=== PATIENT | male | born 1990 | race Caucasian/White ===

== ENCOUNTER 2024-01-27 19:35 | Emergency (ER) | payer BC, OTHER, SELFPAY ==
[2024-01-27 19:38] VITALS: BP 127/94
[2024-01-27 20:00] VITALS: BP 120/88
--- NOTE | 2024-01-27 20:25 | ED.GENMED ---
History of Present Illness
General
Chief Complaint: Abdominal Pain
Time Seen by Provider: 01/27/24 19:53
History of Present Illness
History of Present Illness:
34-year-old male with history of kidney stones presenting to the emergency department for left-sided abdominal pain. Patient reports symptoms started prior to arrival. Pain has since been intermittent. Denies any present pain. It resolved since
arrival to the hospital, did not take any medications for pain. Notes that he has had kidney stones in the past, however on the right side, however pain did not feel similar to kidney stone. Denies any abdominal surgeries in the past. Reports
nausea without vomiting. Denies changes in stool. Denies chest pain or difficulty breathing. Denies fever. Reports some hesitancy with urination, otherwise denies acute medical complaints
Phy Exam
Physical Exam
Physical Exam:
General: Well-appearing, no clinical signs of dehydration, nontoxic and in no acute distress
HEENT: protecting airway
Neck: appears supple
CV: Normal heart rate, regular rhythm
Resp: No accessory muscle use, no increased work of breathing, lungs clear to auscultation bilaterally
Abd: Soft and non-distended, no tenderness to palpation, no CVA tenderness
Extremities: No deformities, no swelling, no erythema
Neuro: alert, no focal neurologic deficit
: deferred
Rectal: deferred
Psych: Normal affect
Skin: Intact
Course
Orders/Labs/Results
Orders:
Orders
01/27/24 20:26
Complete Blood Count/With Diff Urgent
Comprehensive Metabolic Panel Urgent
Lipase Urgent
01/27/24 23:02
Urinalysis Reflex To Culture Urgent
Date Specimen was Collected: 01/27/24
Time Specimen was Collected: 22:58
Urine Microscopic Reflex Cult Urgent
01/27/24 23:09
CT Abd/pel Without Iv Or Oral Urgent
Comment:
Reason For Exam: L-sided pain, hx stones
Abnormal Lab Results
01/27/24 01/27/24
20:26 23:02
WBC 11.3 H 10^3/uL
(4.8-10.8)
RBC 4.29 L 10^6/uL
(4.70-6.10)
Hct 38.7 L %
(39.0-52.0)
MCH 33.3 H pg
(27.0-31.0)
Absolute Neuts (auto) 7.6 H 10^3/uL
(1.4-6.5)
Absolute Monos (auto) 0.8 H 10^3/uL
(0.1-0.6)
Glucose 106 H mg/dl
(70-99)
Ur Occult Blood Reflex 3+ A
(Negative)
Urine RBC 7-10 A /HPF
(0-2)
Urine Bacteria (Reflex) Few A
(Negative)
01/27/24 20:26
01/27/24 20:26
Vital Signs
Initial and Last Documented VS:
Initial Vital Signs
Temp Pulse Resp BP Pulse Ox
98.6 F 89 20 127/94 96
01/27/24 19:38 01/27/24 19:38 01/27/24 19:38 01/27/24 19:38 01/27/24 19:38
Last Documented Vital Signs
Temp Pulse Resp BP Pulse Ox
98.6 F 66 22 124/91 98
01/27/24 19:38 01/27/24 22:00 01/27/24 22:00 01/27/24 22:00 01/27/24 22:00
MDM/Problems Addressed
MDM/Problems Addressed:
34-year-old male with history of kidney stones presenting for left-sided abdominal pain, since resolved. Vital signs are normal.
Patient well-appearing, no acute distress or discomfort. He is currently asymptomatic. No reproducible tenderness. Patient afebrile, nontoxic. In the absence of present symptoms and unremarkable exam, low suspicion for any serious
intra-abdominal process or infection. Symptoms could be consistent with renal colic versus passing kidney stone, known prior history of kidney stones. Will screen with laboratory analysis and urinalysis and continue to closely monitor.
23:10 -labs relatively unremarkable, however urine does show evidence of blood. On reassessment however, patient remains asymptomatic, reports that he has been urinating a lot. Suspect that he has already passed the kidney stone, pain-free.
Patient would like to forego any imaging and would like to be discharged. Feel that this is reasonable. Advised continued supportive therapy with Tylenol or Motrin as needed for pain and continued oral hydration. Return precautions discussed and
patient verbalized understanding.
*Critical Care Note
Total Time (30-74mins, 75-104mins- exclusive of procedures): Not Applicable
ED Attending Note
-
Portions of this chart may have been created with voice recognition software.� Occasional wrong word or��sound alike� substitutions may have occurred due to the inherent limitations of voice recognition software.
Discharge Plan
Departure
Patient Disposition: Home (Routine Discharge)
Date of Disposition: 01/27/24
Time of Disposition: 23:21
Patient with high blood pressure during this ER visit?: No
Condition: Good
Discharge Problem:
Acute left flank pain, Hematuria
Instructions: Kidney Stones (DC)
Referrals:
NONE,* [Family Provider] -
Jan Rahman Jr., MD [Active] - (kidney stone)
Activity Restrictions/Additional Instructions:
You were seen in the emergency department for flank pain
You are suspected to have a kidney
Please follow-up closely with your primary care physician and the urologist.
Return to the emergency department for any worsening of your symptoms, or any development of chest pain, difficulty breathing, abdominal pain with persistent vomiting and inability to tolerate food or liquid by mouth (concern for dehydration),
weakness, headache or confusion, fever greater than 100.4, or any additional symptoms that are concerning to you.
Thank you for choosing [facility].
Interventions
Interventions:
*Risk Screen - Suicide Last Done: 01/27/24 21:18
*General Assessment Last Done: 01/27/24 21:18
*Neglect/Abuse Screening Last Done: 01/27/24 21:18
ED- Fall Risk Assessment Last Done: 01/27/24 21:18
[place]-Odrlvl-Sgcjbhqtfu Assessment Last Done: 01/27/24 21:18
Discharge Date and Time
Print Language: MALAY
[2024-01-27 20:35] LABS: % Basophils 0.5 % (0-2); % Eosinophils 0.3 % (0-6); % Immature Granulocytes 0.3 % (0-0.5); % Lymphocytes 24.2 % (20.5-51.1); % Monocytes 7.3 % (1.7-9.3); % Neutrophils 67.4 % (42.2-75.2); Absolute Basophils 0.1 10^3/uL (0-0.2); Absolute Lymphocytes 2.7 10^3/uL (1.2-3.4); Absolute Monocytes 0.8 10^3/uL (0.1-0.6); Absolute Neutrophils 7.6 10^3/uL (1.4-6.5); Hematocrit 38.7 % (39.0-52.0); Hemoglobin 14.3 g/dL (13.0-18.0); Mean Corpuscular Hgb 33.3 pg (27.0-31.0); Mean Corpuscular Volume 90.2 fL (80.0-94.0); Mean Platelet Volume 9.7 fL (7.4-10.4); Nucleated Red Blood Cells % 0 % (-); Platelet Count 245 10^3/uL (130-400); Red Blood Cell Count 4.29 10^6/uL (4.70-6.10); Red Cell Dist. Width 11.9 % (11.5-14.5); White Blood Cell Count 11.3 10^3/uL (4.8-10.8)
[2024-01-27 21:14] LABS: ALT (SGPT) 26 U/L (0-50); AST (SGOT) 24 U/L (17-59); Albumin 4.5 g/dl (3.5-5.0); Alkaline Phosphatase 57 U/L (38-126); Blood Urea Nitrogen 18 mg/dl (9-20); Calcium 9.5 mg/dl (8.4-10.2); Carbon Dioxide 25 mmol/L (22-30); Chloride 104 mmol/L (98-107); Glucose 106 mg/dl (70-99); Lipase 159 U/L (23-300); Sodium 135 mmol/L (135-145); Total Bilirubin 0.4 mg/dl (0.2-1.3); Total Protein 6.9 g/dl (6.3-8.2); eGFR > 60.00
[2024-01-27 22:00] VITALS: BP 124/91
[2024-01-27 23:06] LABS: Urine Albumin Negative (Neg - Trace); Urine Bilirubin Negative (Negative); Urine Character Clear (Clear); Urine Color Yellow; Urine Glucose Negative (Negative); Urine Ketone Negative (Negative); Urine Leukocyte Negative (Negative); Urine Nitrite Negative (Negative); Urine Occult Blood 3+ (Negative); Urine Specific Gravity 1.025 (<1.030); Urine Urobilinogen Negative (Neg - 1+)
[2024-01-27 23:12] LABS: Urine Squamous Cell 0-2 /LPF (Few)
[2024-01-27 23:13] LABS: Urine Bacteria Few (Negative); Urine Mucus Many; Urine White Cell 0-2 /HPF (0-5)
== END 2024-01-27 23:31 | disposition home or self-care (01) ==
LOC: EMR 19:35
PROVIDERS: EMERGENCY PHYSICIAN Student in an Organized Health Care Education/Training Program
DX: R10.9 Unspecified abdominal pain (principal); R11.0 Nausea; R39.11 Hesitancy of micturition; R31.9 Hematuria, unspecified; Z87.442 Personal history of urinary calculi
CPT/HCPCS: 99283; 80053; 81003; 81015; 83690; 85025